=== PATIENT | female | born 1960 | race Caucasian/White ===

== ENCOUNTER → 2017-10-27 | Outpatient (CLI) | payer OTHER ==
[2017-10-27 12:19] LABS: BASOPHILS # (AUTO) 0.1 X10^3/uL (0.0-0.1); BASOPHILS % (AUTO) 0.6 % (0.2-1.0); EOSINOPHILS # (AUTO) 0.2 x10^3/uL (0.0-0.2); EOSINOPHILS % (AUTO) 1.7 % (0.9-2.9); HEMATOCRIT 42.3 % (36.0-47.0); HEMOGLOBIN 14.8 g/dL (12.0-16.0); LYMPHOCYTES # (AUTO) 3.6 X10^3/uL (1.3-2.9); LYMPHOCYTES % (AUTO) 35.8 % (21.0-51.0); MEAN CORPUSCULAR HEMOGLOBIN 31.1 pg (27.0-34.0); MEAN CORPUSCULAR VOLUME 88.7 fL (80.0-100.0); MEAN PLATELET VOLUME 7.6 fL (7.4-11.0); MONOCYTES # (AUTO) 0.6 x10^3/uL (0.3-0.8); NEUTROPHILS # (AUTO) 5.7 x10^3/uL (2.2-4.8); NEUTROPHILS % (AUTO) 55.9 % (42.0-75.0); PLATELET COUNT 219 X10^3/uL (150.0-450.0); RED BLOOD COUNT 4.76 X10^6/uL (3.5-5.4); RED CELL DISTRIBUTION WIDTH 14.5 % (11.6-16.5); WHITE BLOOD COUNT 10.2 X10^3/uL (3.6-10.0)
[2017-10-27 12:34] LABS: ALANINE AMINOTRANSFERASE 23 Units/L (12-78); ALBUMIN 3.9 g/dL (3.4-5.0); ALKALINE PHOSPHATASE 138 Units/L (46-116); ASPARTATE AMINO TRANSFERASE 17 Units/L (15-37); BLOOD UREA NITROGEN 13 mg/dL (7-18); CALCIUM 9.2 mg/dL (8.5-10.1); CARBON DIOXIDE 26.8 mmol/L (21-32); CHLORIDE 100 mmol/L (98-107); CREATININE 0.81 mg/dL (0.55-1.02); SODIUM 134 mmol/L (136-145); TOTAL PROTEIN 8.6 g/dL (6.4-8.2); eGFR BLACK RACES > 60 (>60); eGFR NON BLACK RACES > 60 (>60)
== END ==
LOC: LAB 12:04
PROVIDERS: ATTEND Surgery
DX: K43.2 Incisional hernia without obstruction or gangrene (principal); R79.89 Other specified abnormal findings of blood chemistry
CPT/HCPCS: 36415; 80053; 82378; 85025

== ENCOUNTER → 2017-11-04 | Outpatient (CLI) | payer OTHER ==
--- NOTE | 2017-11-04 09:33 | CT ---
HISTORY: Hernia. Study: Computed tomography of the abdomen and pelvis: Multiple axial images were obtained throughou t the abdomen and pelvis. Intravascular contrast was not administered. Oral contrast was administer ed. Radiation dose reduction techniques utilized. Comparison: None Findings: The lung bases are clear. No evidence of pleural effusions, parenchymal infiltrates or pulmonary nod ules are identified. The heart size is normal. Mild atherosclerotic changes present within the aort a. A small hiatal hernia is present. The liver is normal. The spleen is normal. The patient is status post cholecystectomy. The common bile duct is normal at 8 mm for patient of this age and for being status post cholecystectomy. The p ancreas is normal. The adrenal glands are normal. The kidneys demonstrate a small hypodense lesion in the upper pole on the left measuring approximately 10 mm in maximum dimension, most likely a cyst. There is minimal focal scarring in the left kidney. There is a large hypodense lesion in the right kidney measuring approximately 3.6 cm in maximum dimension. This has Hounsfield units of fluid and most likely is a cyst. Atherosclerotic changes noted in the abdominal aorta. There is an aorto bi-f emoral graft present. Moderate atherosclerotic changes noted in the branches of the iliac vessels. No evidence of retroperitoneal lymph node enlargement is identified. The patient is status post hyst erectomy . What are felt to be the ovaries are normal. The urinary bladder as visualized is normal. No evidence of free pelvic fluid or ascites is noted. The stomach is nondistended. The duodenum is normal in its appearance. The small bowel is normal. No evidence of mesenteric adenopathy is identified. The terminal ileum is normal. The appendix is n ot identified and normal. The ascending colon is normal. The transverse colon has a segment that is nondistended and moderately thick walled. This may be due to nondistention or secondary to focal co litis. The descending colon is normal. The sigmoid colon is mildly redundant. The region of the re ctum is normal. Examination of the abdominal wall reveals small fat containing inguinal hernias bilaterally. There i s a small fat containing umbilical hernia within internal ostia of approximately 8 mm. There is a le ft-sided ventral hernia present. This extends through the linea semilunaris. The internal ostia is approximately 3.8 cm in width and has a cephalocaudal dimension of approximately 4.7 cm in maximum di mension. The fat containing portion of the hernia outside the abdominal wall cavity measures approxi mately 10.7 cm in cephalocaudal dimension, approximately 2.4 cm in thickness and has a transverse dim ension of approximately 11 cm. This only contains fat at this time. Examination of the bone windows reveals mild spondylosis. Moderate is noted at L5/S1. Mild degenera tive changes present within both hips. IMPRESSION: 1. 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 This contains only fat at this time. 2. Small fat containing umbilical hernia. 3. Small fat containing inguinal hernias bilaterally. 4. Segment of thick-walled transverse colon, most likely due to nondistention or focal colitis. Cli nical correlation is recommended. 5. Aortobifemoral bypass graft. 6. Patient is status post hysterectomy. 7. Probable bilateral renal cyst. Follow-up ultrasound recommended. Reported By:
== END | disposition home or self-care (01) | DRG 392 ==
LOC: RAD 08:32
PROVIDERS: ATTEND Surgery
DX: R10.32 Left lower quadrant pain (principal); K43.9 Ventral hernia without obstruction or gangrene; K42.9 Umbilical hernia without obstruction or gangrene; K40.20 Bilateral inguinal hernia, without obstruction or gangrene, not specified as recurrent
CPT/HCPCS: 74176

== ENCOUNTER 2017-11-06 07:09 | Day surgery (SDC) | payer OTHER ==
[2017-11-06] MEDS ORDERED: NS 1000 ML 1,000 ML ONE (07:14)
[2017-11-06] MEDS ORDERED: DIPRIVAN VIAL 20 ML ONE ×2 (08:05→08:17)
[2017-11-06 09:11] VITALS: BP 165/68
== END 2017-11-06 08:40 | disposition home or self-care (01) ==
LOC: SURG1 07:09
PROVIDERS: ATTEND Surgery
PROC: 0DJD8ZZ Inspection of Lower Intestinal Tract, Via Natural or Artificial Opening Endoscopic (ICD-10-PCS; principal; 2017-11-06 08:30)
PROC: 0DBN8ZX Excision of Sigmoid Colon, Via Natural or Artificial Opening Endoscopic, Diagnostic (ICD-10-PCS; principal; 2017-11-06 08:30)
DX: R10.84 Generalized abdominal pain (principal); K62.89 Other specified diseases of anus and rectum; K64.0 First degree hemorrhoids; K52.89 Other specified noninfective gastroenteritis and colitis; Z86.010 Personal history of colon polyps
CPT/HCPCS: A4217; J3490

== ENCOUNTER → 2017-11-11 | Outpatient (CLI) | payer OTHER ==
[2017-11-06 09:11] VITALS: BP 165/68
--- NOTE | 2017-11-11 09:30 | RAD ---
HISTORY: Preoperative exam for hernia repair Study: Two views of the chest Comparison: None Findings: The trachea is midline. The cardiac silhouette is unremarkable. The lungs are clear without focal i nfiltrate or effusion. IMPRESSION: 1. No acute cardiopulmonary disease. Reported By:
[2017-11-11 09:38] LABS: BASOPHILS # (AUTO) 0.1 X10^3/uL (0.0-0.1); BASOPHILS % (AUTO) 0.8 % (0.2-1.0); EOSINOPHILS # (AUTO) 0.2 x10^3/uL (0.0-0.2); EOSINOPHILS % (AUTO) 1.6 % (0.9-2.9); HEMATOCRIT 41.3 % (36.0-47.0); HEMOGLOBIN 14.4 g/dL (12.0-16.0); LYMPHOCYTES # (AUTO) 2.7 X10^3/uL (1.3-2.9); LYMPHOCYTES % (AUTO) 28.1 % (21.0-51.0); MEAN CORPUSCULAR HEMOGLOBIN 30.9 pg (27.0-34.0); MEAN CORPUSCULAR HGB CONC 34.8 g/dL (33.0-35.0); MEAN CORPUSCULAR VOLUME 88.9 fL (80.0-100.0); MEAN PLATELET VOLUME 7.3 fL (7.4-11.0); MONOCYTES # (AUTO) 0.7 x10^3/uL (0.3-0.8); MONOCYTES % (AUTO) 7.6 % (0.0-13.0); NEUTROPHILS # (AUTO) 5.9 x10^3/uL (2.2-4.8); NEUTROPHILS % (AUTO) 61.9 % (42.0-75.0); PLATELET COUNT 272 X10^3/uL (150.0-450.0); RED BLOOD COUNT 4.64 X10^6/uL (3.5-5.4); RED CELL DISTRIBUTION WIDTH 14.3 % (11.6-16.5); WHITE BLOOD COUNT 9.5 X10^3/uL (3.6-10.0)
[2017-11-11 09:49] LABS: ALANINE AMINOTRANSFERASE 22 Units/L (12-78); ALBUMIN 3.5 g/dL (3.4-5.0); ALKALINE PHOSPHATASE 126 Units/L (46-116); ASPARTATE AMINO TRANSFERASE 17 Units/L (15-37); BLOOD UREA NITROGEN 12 mg/dL (7-18); CALCIUM 8.5 mg/dL (8.5-10.1); CHLORIDE 104 mmol/L (98-107); CREATININE 0.95 mg/dL (0.55-1.02); SODIUM 139 mmol/L (136-145); TOTAL PROTEIN 7.7 g/dL (6.4-8.2); eGFR BLACK RACES > 60 (>60); eGFR NON BLACK RACES > 60 (>60)
== END ==
LOC: LAB 08:43
PROVIDERS: ATTEND Surgery
DX: Z01.818 Encounter for other preprocedural examination (principal); Z01.810 Encounter for preprocedural cardiovascular examination; Z01.811 Encounter for preprocedural respiratory examination; Z01.812 Encounter for preprocedural laboratory examination; K43.0 Incisional hernia with obstruction, without gangrene
CPT/HCPCS: 36415; 71046; 80053; 85025; 93005; 93010